=== PATIENT | male | born 1990 | race Two or more races ===

== ENCOUNTER 2022-05-19 12:39 | Emergency (ER) | payer MEDICAID ==
[~2022-05-19] VITALS: Ht 177.8 cm; Wt 78.0 kg
[2022-05-19 12:43] VITALS: BP 123/70
[2022-05-19] MEDS ORDERED: ESCI-7 MT (15:11)
[2022-05-19] MEDS ORDERED: LAMO50TA3 MT (15:11)
== END 2022-05-19 15:48 | disposition home or self-care (01) ==
LOC: ER 12:54
DX: Z76.0 Encounter for issue of repeat prescription (principal); F41.8 Other specified anxiety disorders
CPT/HCPCS: 99281

== ENCOUNTER 2022-06-13 15:15 | Emergency (ER) | payer MEDICAID ==
[~2022-06-13] VITALS: Ht 182.9 cm; Wt 106.0 kg
[~2022-06-13 15:15] MED LIST: ESCI-7 MT; LAMO50TA3 MT
[2022-06-13 15:43] VITALS: BP 122/76
[2022-06-13] MEDS ORDERED: LAMO50TA3 MT (18:13)
[2022-06-13] MEDS ORDERED: ESCI-7 MT (18:13)
== END 2022-06-13 18:30 | disposition home or self-care (01) ==
LOC: ER 15:15
DX: Z76.0 Encounter for issue of repeat prescription (principal)
CPT/HCPCS: 99281

== ENCOUNTER 2022-07-21 00:16 | Emergency (ER) | payer SELFPAY ==
[~2022-07-21] VITALS: Ht 180.3 cm; Wt 123.8 kg
[2022-07-21] MEDS ORDERED: LAMO50TA3 MT (03:48)
[2022-07-21] MEDS ORDERED: ESCI-7 MT (03:48)
[2022-07-21 04:01] VITALS: BP 131/72
== END 2022-07-21 04:02 | disposition home or self-care (01) ==
LOC: ER 00:16
DX: Z76.0 Encounter for issue of repeat prescription (principal); F41.8 Other specified anxiety disorders
CPT/HCPCS: 99281